=== PATIENT | female | born 1990 | race Caucasian/White ===

== ENCOUNTER 2021-10-23 18:39 | Inpatient (IN) ==
[2021-10-23] MEDS ORDERED: SODIUM CHLORIDE 0.9% 1000ML 1,000 ML IV STA (19:01)
[2021-10-23] MEDS ORDERED: ACETAMINOPHEN 500 MG TAB PO STA (19:01)
[2021-10-23] MEDS ORDERED: SODIUM CHLORIDE 0.9% 1000ML 500 ML IV ONE (19:01)
[2021-10-23 19:24] LABS: Hematocrit (blood only) 40.6 % (37-47); Hemoglobin 13.4 g/dL (12.0-16.0); Lymphocytes # (auto) 0.86 K/uL (1.2-3.4); Lymphocytes % (auto) 23.1 %; Mean Corpuscular Hemoglobin 28.1 pg (25-34); Mean Corpuscular Volume 85.1 fL (80-100); Mean Platelet Volume 9.3 fL (7.4-10.4); Monocytes # (auto) 0.16 K/uL (0.11-0.59); Monocytes % (auto) 4.3 %; Neutrophils # (auto) 2.71 K/uL (1.4-6.5); Neutrophils % (auto) 72.6 %; Platelet Count 180 K/uL (130-400); RDW Coefficient of Variation 15.2 % (11.5-14.5); RDW Standard Deviation 47.5 fL (36.4-46.3); Red Blood Count 4.77 M/uL (4.2-5.4); White Blood Count 3.73 K/uL (4.8-10.8)
--- NOTE | 2021-10-23 19:29 | XRay Report ---
SINGLE VIEW CHEST CLINICAL HISTORY: Dyspnea. FINDINGS: An AP, portable, upright chest radiograph is obtained. No prior studies are available for c omparison at the time of dictation. The examination is degraded by portable technique and patient rot ation. The cardiomediastinal silhouette is unremarkable. There are low lung volumes. Multifocal airs pace consolidation is seen throughout both lungs. No large pleural effusion or pneumothorax is seen. The bony thorax is grossly intact. IMPRESSION: Multifocal airspace consolidation is typical for pneumonia. Clinical correlation will be required and radiographic follow-up to resolution is recommended. ACT 112: Negative or not required by law. Electronically signed by: Benjamin Morales M.D. 10/23/2021 7:27 PM
[2021-10-23] MEDS ORDERED: dexAMETHasone**PF** 10 MG/ML VIAL IV ONE (19:44)
--- NOTE | 2021-10-23 19:44 | Emergency Department Note ---
Impression & Plan COVID-19, Pneumonia, Hypoxia ED Provider Note INFORMANT: Patient ED PROVIDER(S): Abner Ayala MD CHIEF COMPLAINT: Shortness of breath PLAN: Disposition: Admitted Condition: Good Outpatient prescription management: none Referral: None MEDICAL DECISION MAKING: Patient presented because of shortness of breath. She was found to be significantly hypoxic. She responded well to supplemental oxygen. Chest x-ray showed a patchy infiltrative process and with her Covid diagnosis this seems to be most consistent with Covid pneumonia. Patient was hydrated with IV normal saline. She was treated with IV Decadron. She was given Tylenol. CT imaging was performed and did not reveal any central pulmonary embolus. Findings consistent with Covid pneumonia present. Consultation was made with Dr. Raphael Dodson, [facility] hospitalist service. Case discussed and diagnostics reviewed. Patient was evaluated in the ER and admitted. Triage Nursing notes reviewed and agree them. Vital Signs: reviewed and remarkable for hypoxia fever Differential diagnosis: Diagnostics interpreted by me: ECG: Twelve-lead ECG reveals sinus tachycardia [address] elevation or depression. No PACs or PVCs. Normal axis and QRS. Cardiac Monitoring: Cardiac monitoring ordered by me: The patient was placed on continuous cardiac monitoring and observed. It revealed a normal sinus rhythm at 78 beats per minute without ectopy or evidence of dysrhythmia. Imaging studies: Chest x-ray reveals bilateral patchy infiltrates consistent with viral p neumonia. HPI: The patient is a 31 year old female who presents to the Emergency Room with complaints of shortness of breath. This started and is worsening. The patient also notes the following associated symptoms, cough, nausea, vomiting, diarrhea, fatigue and generalized weakness. The patient has found no relieving factors at home Current pain is rated as 0/10. Patient was diagnosed with Covid on 10/16. Upon arrival patient was noted to be hypoxic. She felt much better with supplemental oxygen. Patient is unvaccinated. Pt denies LOC, headache, fevers, chills, diaphoresis, visual changes, neck pain, chest pain, abdominal pain, back pain, melena, hematochezia, urinary symptoms, numbness, lymphadenopathy, rash, or other complaints. ROS: See above HPI for pertinent positives & negatives. A total of 10 systems reviewed and were otherwise negative. PAST MEDICAL HISTORY:See Below , anxiety PAST SURGICAL HISTORY:See Below, FAMILY HISTORY:See Below SOCIAL HISTORY:See Below, non-smoker HOME MEDICATIONS:See Below ALLERGIES:See Below VITALS:See Below PHYSICAL EXAMINATION: GENERAL: Awake, alert, dyspneic-appearing, in mild distress HENT: Normocephalic, atraumatic. Oropharynx unremarkable. EYES: Normal conjunctiva. Sclera non-icteric. NECK: Inspection normal. Non-tender. Supple. No nuchal rigidity. FROM. No masses. RESPIRATORY: Few scattered rales. Mildly increased respiratory effort. CARDIAC: Tachycardic rate. Normal rhythm. No murmurs. No rubs. Extremities warm and well perfused. Pulses equal. No JVD. GI: Soft, non-distended. No tenderness to palpation. No rebound or guarding. No masses. RECTAL: Deferred. MUSCULOSKELETAL: Atraumatic. Chest examination reveals no tenderness. The back is symmetrical on inspection without obvious abnormality. There is no CVA tenderness to palpation. No joint edema. LOWER EXTREMITIES: Calves are equal size bilaterally and non-tender. No edema. No discoloration. NEURO: Normal sensorium. No sensory or motor deficits noted. SKIN: No rash or jaundice noted. CRITICAL CARE: I have personally spent greater than 35 minutes of critical care time in the direct management of this patient. This includes bedside care, interpretation of diagnostic studies, and testing, discussion with datastage consultant(s), patient, and other required patient management activities. These minutes are in excess of all separately billable procedures. Abner Ayala MD Past Med/Surg History Social History Smoking Status: Never smoker Feels Safe at Home: Yes Allergies Allergies Allergy/AdvReac Type Severity Reaction Status Date / Time prednisone Allergy Unknown SHORTNESS Verified 10/23/21 19:53 OF BREATH Home Meds Home Medications Medication Instructions Recorded Confirmed hydroxyzine HCl 50 mg tablet 50 mg PO TID 10/23/21 10/23/21 ondansetron HCl 8 mg tablet 8 mg PO Q8H PRN 10/23/21 10/23/21 Results & Data (ED) Vital Signs Vital Signs - 24 hr 10/23/21 18:46 10/23/21 18:56 10/23/21 19:00 Temperature 37.7 C H Temperature Source Temporal Artery Scan Pulse Rate 120 H 116 H 117 H Pulse Rate [Left Apical] Pulse Rate from SpO2 Sensor 116 H 117 H Respiratory Rate 26 H 20 25 H Respiratory Effort / Characteristics Non-Labored Spontaneous Respiratory Depth Normal Respiratory Pattern Regular Blood Pressure 131/76 116/63 Blood Pressure [Left Arm] Blood Pressure Mean 94 80 Blood Pressure Mean [Left Arm] Pulse Oximetry 82 L 93 94 Oxygen Delivery Method Room Air Oxygen Flow Rate Sepsis Recent Fever Within 48 Hours No Sepsis New/Unexplained Change in Mental Status No Sepsis Action Taken by Nursing No Action Required 10/23/21 19:23 10/23/21 19:26 10/23/21 19:27 Temperature Temperature Source Pulse Rate Pulse Rate [Left Apical] 111 H Pulse Rate from SpO2 Sensor Respiratory Rate 22 Respiratory Effort / Characteristics Short of Breath Respiratory Depth Respiratory Pattern Blood Pressure Blood Pressure [Left Arm] 116/63 Blood Pressure Mean Blood Pressure Mean [Left Arm] 80 Pulse Oximetry 96 96 Oxygen Delivery Method Oxymask Oxymask Oxygen Flow Rate 6 4 Sepsis Recent Fever Within 48 Hours Sepsis New/Unexplained Change in Mental Status Sepsis Action Taken by Nursing 10/23/21 19:30 10/23/21 20:00 10/23/21 20:30 Temperature Temperature Source Pulse Rate 115 H 107 H 102 H Pulse Rate [Left Apical] Pulse Rate from SpO2 Sensor 107 H 102 H Respiratory Rate 17 26 H 22 Respiratory Effort / Characteristics Respiratory Depth Respiratory Pattern Blood Pressure 135/78 Blood Pressure [Left Arm] Blood Pressure Mean 97 Blood Pressure Mean [Left Arm] Pulse Oximetry 96 95 Oxygen Delivery Method Oxygen Flow Rate Sepsis Recent Fever Within 48 Hours Sepsis New/Unexplained Change in Mental Status Sepsis Action Taken by Nursing 10/23/21 21:00 10/23/21 21:30 Temperature Temperature Source Pulse Rate 97 H 93 H Pulse Rate [Left Apical] Pulse Rate from SpO2 Sensor 97 H 94 H Respiratory Rate 25 H 19 Respiratory Effort / Characteristics Respiratory Depth Respiratory Pattern Blood Pressure Blood Pressure [Left Arm] Blood Pressure Mean Blood Pressure Mean [Left Arm] Pulse Oximetry 93 95 Oxygen Delivery Method Nasal Cannula Oxygen Flow Rate 4 Sepsis Recent Fever Within 48 Hours Sepsis New/Unexplained Change in Mental Status Sepsis Action Taken by Nursing Laboratory Data Result diagrams: 10/23/21 19:10 10/23/21 19:10 Lab Results 10/23/21 10/23/21 10/23/21 Range/Units 19:10 19:10 19:10 WBC 3.73 L (4.8-10.8) K/uL RBC 4.77 (4.2-5.4) M/uL Hgb 13.4 (12.0-16.0) g/dL Hct 40.6 (37-47) % MCV 85.1 (80-100) fL MCH 28.1 (25-34) pg MCHC 33.0 (32-36) g/dL RDW Std Deviation 47.5 H (36.4-46.3) fL RDW Coeff of Hermes 15.2 H (11.5-14.5) % Plt Count 180 (130-400) K/uL MPV 9.3 (7.4-10.4) fL Immature Gran % (Auto) 0.0 % Neut % (Auto) 72.6 % Lymph % (Auto) 23.1 % [place] % (Auto) 4.3 % Eos % (Auto) 0.0 % Baso % (Auto) 0.0 % Neut # (Auto) 2.71 (1.4-6.5) K/uL Lymph # (Auto) 0.86 L (1.2-3.4) K/uL [place] # (Auto) 0.16 (0.11-0.59) K/uL Eos # (Auto) 0.00 (0-0.5) K/uL Baso # (Auto) 0.00 (0-0.2) K/uL Immature Gran # (Auto) 0.00 (0.00-0.02) K/uL APTT (21.0-31.0) Seconds PTT Ratio D-Dimer (0-500) ug/L FEU Sodium 136 (136-145) mmol/L Potassium 3.4 L (3.5-5.1) mmol/L Chloride 103 (98-107) mmol/L Carbon Dioxide 25 (21-32) mmol/L Anion Gap 8.0 (3-11) BUN 16 (7-18) mg/dl Creatinine 0.88 (0.6-1.2) mg/dl Est Cr Clr Drug Dosing 130.5 ml/min Est GFR ( Amer) 100.1 ml/min Est GFR (Non-Af Amer) 86.3 ml/min BUN/Creatinine Ratio 18.6 (10-20) Glucose 150 H (70-99) mg/dl Lactate (0.4-2.0) mmol/L Calcium 7.9 L (8.5-10.1) mg/dl Magnesium 2.2 (1.8-2.4) mg/dl Total Bilirubin 0.4 (0.2-1) mg/dl AST 51 H (15-37) U/L ALT 31 (12-78) Alkaline Phosphatase 69 (45-117) U/L Troponin I < 0.015 (0-0.045) ng/ml C-Reactive Protein 6.59 H (0-0.29) mg/dl NT-Pro-B Natriuret Pep 85 (0-450) pg/ml Total Protein 7.1 (6.4-8.2) gm/dl Albumin 2.9 L (3.4-5.0) gm/dl Globulin 4.2 H (2.5-4.0) gm/dl Albumin/Globulin Ratio 0.7 L (0.9-2) Procalcitonin 0.09 (0-0.5) ng/ml HCG, Qual (Negative) SARS-CoV-2 (PCR) (Negative) Influenza Type A (PCR) (Neg) Influenza Type B (PCR) (Neg) RSV (RT-PCR) (Neg) 10/23/21 10/23/21 10/23/21 Range/Units 19:10 19:10 19:10 WBC (4.8-10.8) K/uL RBC (4.2-5.4) M/uL Hgb (12.0-16.0) g/dL Hct (37-47) % MCV (80-100) fL MCH (25-34) pg MCHC (32-36) g/dL RDW Std Deviation (36.4-46.3) fL RDW Coeff of Hermes (11.5-14.5) % Plt Count (130-400) K/uL MPV (7.4-10.4) fL Immature Gran % (Auto) % Neut % (Auto) % Lymph % (Auto) % [place] % (Auto) % Eos % (Auto) % Baso % (Auto) % Neut # (Auto) (1.4-6.5) K/uL Lymph # (Auto) (1.2-3.4) K/uL [place] # (Auto) (0.11-0.59) K/uL Eos # (Auto) (0-0.5) K/uL Baso # (Auto) (0-0.2) K/uL Immature Gran # (Auto) (0.00-0.02) K/uL APTT 31.3 H (21.0-31.0) Seconds PTT Ratio 1.2 D-Dimer 1200 H* (0-500) ug/L FEU Sodium (136-145) mmol/L Potassium (3.5-5.1) mmol/L Chloride (98-107) mmol/L Carbon Dioxide (21-32) mmol/L Anion Gap (3-11) BUN (7-18) mg/dl Creatinine (0.6-1.2) mg/dl Est Cr Clr Drug Dosing ml/min Est GFR ( Amer) ml/min Est GFR (Non-Af Amer) ml/min BUN/Creatinine Ratio (10-20) Glucose (70-99) mg/dl Lactate 1.5 (0.4-2.0) mmol/L Calcium (8.5-10.1) mg/dl Magnesium (1.8-2.4) mg/dl Total Bilirubin (0.2-1) mg/dl AST (15-37) U/L ALT (12-78) Alkaline Phosphatase (45-117) U/L Troponin I (0-0.045) ng/ml C-Reactive Protein (0-0.29) mg/dl NT-Pro-B Natriuret Pep (0-450) pg/ml Total Protein (6.4-8.2) gm/dl Albumin (3.4-5.0) gm/dl Globulin (2.5-4.0) gm/dl Albumin/Globulin Ratio (0.9-2) Procalcitonin (0-0.5) ng/ml HCG, Qual (Negative) SARS-CoV-2 (PCR) (Negative) Influenza Type A (PCR) (Neg) Influenza Type B (PCR) (Neg) RSV (RT-PCR) (Neg) 10/23/21 10/23/21 Range/Units 19:10 19:58 WBC (4.8-10.8) K/uL RBC (4.2-5.4) M/uL Hgb (12.0-16.0) g/dL Hct (37-47) % MCV (80-100) fL MCH (25-34) pg MCHC (32-36) g/dL RDW Std Deviation (36.4-46.3) fL RDW Coeff of Hermes (11.5-14.5) % Plt Count (130-400) K/uL MPV (7.4-10.4) fL Immature Gran % (Auto) % Neut % (Auto) % Lymph % (Auto) % [place] % (Auto) % Eos % (Auto) % Baso % (Auto) % Neut # (Auto) (1.4-6.5) K/uL Lymph # (Auto) (1.2-3.4) K/uL [place] # (Auto) (0.11-0.59) K/uL Eos # (Auto) (0-0.5) K/uL Baso # (Auto) (0-0.2) K/uL Immature Gran # (Auto) (0.00-0.02) K/uL APTT (21.0-31.0) Seconds PTT Ratio D-Dimer (0-500) ug/L FEU Sodium (136-145) mmol/L Potassium (3.5-5.1) mmol/L Chloride (98-107) mmol/L Carbon Dioxide (21-32) mmol/L Anion Gap (3-11) BUN (7-18) mg/dl Creatinine (0.6-1.2) mg/dl Est Cr Clr Drug Dosing ml/min Est GFR ( Amer) ml/min Est GFR (Non-Af Amer) ml/min BUN/Creatinine Ratio (10-20) Glucose (70-99) mg/dl Lactate (0.4-2.0) mmol/L Calcium (8.5-10.1) mg/dl Magnesium (1.8-2.4) mg/dl Total Bilirubin (0.2-1) mg/dl AST (15-37) U/L ALT (12-78) Alkaline Phosphatase (45-117) U/L Troponin I (0-0.045) ng/ml C-Reactive Protein (0-0.29) mg/dl NT-Pro-B Natriuret Pep (0-450) pg/ml Total Protein (6.4-8.2) gm/dl Albumin (3.4-5.0) gm/dl Globulin (2.5-4.0) gm/dl Albumin/Globulin Ratio (0.9-2) Procalcitonin (0-0.5) ng/ml HCG, Qual Negative (Negative) SARS-CoV-2 (PCR) POSITIVE A* (Negative) Influenza Type A (PCR) Negative (Neg) Influenza Type B (PCR) Negative (Neg) RSV (RT-PCR) Negative (Neg) Administered Medications Sodium Chloride (Nss 1000ml) 1,000 mls @ 125 mls/hr IV .Q8H STA Stop: 10/24/21 03:00 Last Admin: 10/23/21 20:00 Dose: 125 mls/hr Documented by: [id number] Potassium Chloride/Sodium Chloride (Normal Saline W/20 Meq Kcl) 20 meq in 1,000 mls @ 80 mls/hr IV .[id number] ONE; Protocol Stop: 10/24/21 10:27 Last Admin: 10/23/21 22:33 Dose: 80 mls/hr Documented by: [id number] Discontinued Medications Acetaminophen (Acetaminophen 500 Mg Tab) 1,000 mg PO NOW STA Stop: 10/23/21 19:02 Last Admin: 10/23/21 19:59 Dose: 1,000 mg Documented by: [id number] Benzonatate (Benzonatate 100 Mg Capsule) 100 mg PO NOW ONE Stop: 10/23/21 21:59 Last Admin: 10/23/21 22:31 Dose: 100 mg Documented by: [id number] Dexamethasone Sodium Phosphate (DexamethasonePf 10 Mg/Ml Vial) 6 mg IV NOW ONE Stop: 10/23/21 19:45 Last Admin: 10/23/21 19:59 Dose: 6 mg Documented by: [id number] Sodium Chloride (Nss 1000ml) 500 mls @ 999 mls/hr IV .Q31M ONE Stop: 10/23/21 19:31 Last Infusion: 10/23/21 22:08 Dose: 0 mls/hr Documented by: [id number] Admin: 10/23/21 19:37 Dose: 999 mls/hr Documented by: [id number] Doxycycline Hyclate 100 mg/ (Dextrose) 110 mls @ 50 mls/hr IV NOW STA Stop: 10/23/21 23:38 Last Admin: 10/23/21 22:39 Dose: Not Given Documented by: [id number] Doxycycline Hyclate 100 mg/ (Dextrose) 110 mls @ 50 mls/hr IV NOW STA Stop: 10/24/21 00:01 Last Admin: 10/23/21 22:33 Dose: 50 mls/hr Documented by: [id number] Ioversol (Optiray 320 125ml) 120 ml IV ONCE ONE Stop: 10/23/21 20:12 Last Admin: 10/23/21 20:14 Dose: 120 ml Documented by: [id number] Ipratropium [place] (Ipratropium [place] Neb Soln 0.02% 2.5 Ml Vial) 0.5 mg INH ONE STA Stop: 10/23/21 21:59 Last Admin: 10/23/21 22:30 Dose: 0.5 mg Documented by: [id number] Levalbuterol HCl (Levalbuterol 1.25mg/0.5ml Neb) 1.25 mg INH ONE STA Stop: 10/23/21 21:59 Last Admin: 10/23/21 22:33 Dose: 1.25 mg Documented by: [id number] Potassium Chloride (Potassium Chloride Crtab 20 Meq Tabcr) 40 meq PO NOW STA Stop: 10/23/21 20:28 Last Admin: 10/23/21 20:39 Dose: 40 meq Documented by: [id number] Imaging Data Radiologist's Impression: Chest X-Ray 10/23/21 18:57 SINGLE VIEW CHEST CLINICAL HISTORY: Dyspnea. FINDINGS: An AP, portable, upright chest radiograph is obtained. No prior studies are available for comparison at the time of dictation. The examination is degraded by portable technique and patient rotation. The cardiomediastinal silhouette is unremarkable. There are low lung volumes. Multifocal airspace consolidation is seen throughout both lungs. No large pleural effusion or pneumothorax is seen. The bony thorax is grossly intact. IMPRESSION: Multifocal airspace consolidation is typical for pneumonia. Clinical correlation will be required and radiographic follow-up to resolution is recommended. ACT 112: Negative or not required by law. Electronically signed by: Benjamin Morales M.D. 10/23/2021 7:27 PM Chest CTA 10/23/21 19:52 CT ANGIOGRAM OF THE CHEST CLINICAL HISTORY: Dyspnea. Covid. COMPARISON STUDY: Chest x-ray dated 10/23/2021. TECHNIQUE: Following the IV administration of 120 cc of Optiray 320, CT angiogram of the chest was performed from the upper abdomen to the thoracic inlet utilizing the pulmonary embolus protocol. Images are reviewed in the axial, sagittal, and coronal planes. 3-D MIPS images are created and assessed. IV contrast was administered without complication. A dose lowering technique was utilized adhering to the principles of ALARA. CT DOSE: 730.56 mGy.cm FINDINGS: Thyroid: Imaged portions of the thyroid gland are normal in size and attenuation. Thoracic aorta: The thoracic aorta is normal in caliber and demonstrates standard 3-vessel arch anatomy. No dissection is seen. Pulmonary vasculature: The pulmonary trunk is normal in caliber. There are no filling defects identified in main, lobar, or proximal segmental pulmonary branches to suggest pulmonary embolus. Evaluation of the segmental and subsegmental branches is significantly degraded by motion artifact. Heart: The heart is top normal in size and without pericardial effusion. Lungs and pleural spaces: Evaluation of the lung parenchyma is degraded by motion artifact. There is extensive multifocal airspace consolidation seen throughout both lungs. No pleural effusion is identified. Secretions are noted in the trachea. There is no pneumothorax. Mediastinum: There are numerous mildly enlarged mediastinal lymph nodes. Prevascular nodes measure up to 12 mm in short axis. Pretracheal nodes measure up to 14 mm in short axis. Rosina: There are enlarged bilateral hilar nodes. These measure up to 13 mm in short axis. Axillae: There is no axillary lymphadenopathy. Upper abdomen: The spleen is enlarged measuring 14.6 cm in length Partially visualized upper abdominal viscera is otherwise grossly unremarkable. Skeletal structures: No lytic or blastic bony lesions are seen. IMPRESSION: 1. Motion compromised examination. 2. There is no evidence of central pulmonary embolus in the main, lobar, or proximal segmental pulmonary arteries. Evaluation of the segmental and subsegmental branches is significantly degraded by motion artifact. 3. Extensive multifocal airspace consolidation is consistent with the reported history of a viral pneumonia. Radiographic follow-up to resolution is recommended. 4. Enlarged mediastinal and hilar lymph nodes are likely reactive. 5. Mild splenomegaly. 6. Additional findings as above. ACT 112: Negative or not required by law. Electronically signed by: Benjamin Morales M.D. 10/23/2021 8:29 PM Discharge Plan Visit Data Chief Complaint: Shortness of Breath/Dyspnea Stated Complaint: COVID+, SOB ED Provider: Abner Ayala Discharge Problem: COVID-19, Pneumonia, Hypoxia Patient Disposition: Admitted As Inpatient Discharge Instructions Interventions: ED Discharge Assessment Last Done: 10/24/21 01:57
[2021-10-23 19:45] LABS: Alanine Aminotransferase 31 (12-78); Albumin Level 2.9 gm/dl (3.4-5.0); Aspartate Aminotransferase 51 U/L (15-37); BUN Creatinine Ratio 18.6 (10-20); Blood Urea Nitrogen 16 mg/dl (7-18); C Reactive Protein 6.59 mg/dl (0-0.29); Calcium 7.9 mg/dl (8.5-10.1); Carbon Dioxide 25 mmol/L (21-32); Chloride 103 mmol/L (98-107); Creatinine Clr Calc Pharmacy 130.5 ml/min; Est GFR (African American) 100.1 ml/min; Est GFR (Non-African American) 86.3 ml/min; Glucose 150 mg/dl (70-99); Potassium 3.4 mmol/L (3.5-5.1); Sodium 136 mmol/L (136-145)
[2021-10-23 19:50] LABS: Albumin Globulin Ratio 0.7 (0.9-2); Alkaline Phosphatase 69 U/L (45-117); Bilirubin,Total 0.4 mg/dl (0.2-1); Globulin 4.2 gm/dl (2.5-4.0); NT Pro B Type Natriuretic Pept 85 pg/ml (0-450); Total Protein 7.1 gm/dl (6.4-8.2); Troponin I < 0.015 ng/ml (0-0.045)
[2021-10-23] MEDS ORDERED: OPTIRAY 320 125ml IV ONE (20:11)
[2021-10-23] MEDS ORDERED: POTASSIUM CHLORIDE CRTAB 20 MEQ TABCR PO STA (20:27)
--- NOTE | 2021-10-23 20:30 | CT Scan Report ---
CT ANGIOGRAM OF THE CHEST CLINICAL HISTORY: Dyspnea. Covid. COMPARISON STUDY: Chest x-ray dated 10/23/2021. TECHNIQUE: Following the IV administration of 120 cc of Optiray 320, CT angiogram of the chest was pe rformed from the upper abdomen to the thoracic inlet utilizing the pulmonary embolus protocol. Images are reviewed in the axial, sagittal, and coronal planes. 3-D MIPS images are created and assessed. I V contrast was administered without complication. A dose lowering technique was utilized adhering to the principles of ALARA. CT DOSE: 730.56 mGy.cm FINDINGS: Thyroid: Imaged portions of the thyroid gland are normal in size and attenuation. Thoracic aorta: The thoracic aorta is normal in caliber and demonstrates standard 3-vessel arch anato my. No dissection is seen. Pulmonary vasculature: The pulmonary trunk is normal in caliber. There are no filling defects identif ied in main, lobar, or proximal segmental pulmonary branches to suggest pulmonary embolus. Evaluation of the segmental and subsegmental branches is significantly degraded by motion artifact. Heart: The heart is top normal in size and without pericardial effusion. Lungs and pleural spaces: Evaluation of the lung parenchyma is degraded by motion artifact. There is extensive multifocal airspace consolidation seen throughout both lungs. No pleural effusion is identi fied. Secretions are noted in the trachea. There is no pneumothorax. Mediastinum: There are numerous mildly enlarged mediastinal lymph nodes. Prevascular nodes measure up to 12 mm in short axis. Pretracheal nodes measure up to 14 mm in short axis. Ros[place]: There are enlarged bilateral hilar nodes. These measure up to 13 mm in short axis. Axillae: There is no axillary lymphadenopathy. Upper abdomen: The spleen is enlarged measuring 14.6 cm in length Partially visualized upper abdomina l viscera is otherwise grossly unremarkable. Skeletal structures: No lytic or blastic bony lesions are seen. IMPRESSION: 1. Motion compromised examination. 2. There is no evidence of central pulmonary embolus in the main, lobar, or proximal segmental pulmon jaydon arteries. Evaluation of the segmental and subsegmental branches is significantly degraded by claudia on artifact. 3. Extensive multifocal airspace consolidation is consistent with the reported history of a viral pne umonia. Radiographic follow-up to resolution is recommended. 4. Enlarged mediastinal and hilar lymph nodes are likely reactive. 5. Mild splenomegaly. 6. Additional findings as above. ACT 112: Negative or not required by law. Electronically signed by: Benjamin Morales M.D. 10/23/2021 8:29 PM
[2021-10-23 20:36] LABS: Magnesium 2.2 mg/dl (1.8-2.4)
[2021-10-23 20:42] LABS: Partial Thromboplastin Ratio 1.2; Partial Thromboplastin Time 31.3 Seconds (21.0-31.0)
[2021-10-23 20:49] LABS: Influenza A virus by PCR Negative (Neg); Influenza B virus by PCR Negative (Neg); RSV by PCR Negative (Neg)
[2021-10-23 21:18] LABS: D Dimer 1200 ug/L FEU (0-500)
[2021-10-23 21:23] LABS: SARS CoV2 RNA(COVID-19) InHosp POSITIVE (Negative)
[2021-10-23] MEDS ORDERED: DOXYCYCLINE HYCLATE 100 MG in DEXTROSE 5% 100 ML IV STA ×2 (21:27→21:50)
[2021-10-23 21:47] LABS: Pregnancy Test, Serum Negative (Negative)
[2021-10-23] MEDS ORDERED: XOPENEX/ATROVENT 1.25mg/0.5MG NEB COMBO NEB STA (21:50)
--- NOTE | 2021-10-23 21:50 | History & Physical Report ---
Date of Service October 23, 2021 Assessment & Plan (1) Acute hypoxemic respiratory failure: Plan: Secondary to severe COVID-19 pneumonia Patient septic with secondary bacterial infection. Hemoptysis secondary to above Hemoglobin currently stable anxiety disorder, at baseline Hypokalemia secondary to diarrhea, poor p.o. intake prediabetes, hemoglobin A1c of 5.12 May 2021 Medical telemetry Supplemental O2 Decadron course CS, Doxycycline for secondary bacterial infection Antitussives for hemoptysis. Pulmonary consult if with worsening Replace potassium DVT prophylaxis SCDs for now Re: Hemoptysis, initiate Lovenox subcu once hemoptysis resolved and hemoglobin stable/ Full code Text document was generated using [email or web address] voice recognition software. It may contain grammatical or spelling errors. Kindly contact undersigned for clarification of any documentation item in question. History of Present Illness Chief Complaint: Low oxygen, shortness of breath, Covid 19 Primary Care Provider: Dr. Felice Aaron History obtained from patient and records. Medical history significant for kidney stones, anxiety disorder, prediabetes. 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 10 days ago patient noted fever, vomiting, diarrhea symptoms without abdominal pain. Sick COVID-19 contacts at work. Home Covid test was positive. Patient has not received COVID-19 vaccination. Supportive care recommended by PCPs office. 3 days ago, patient noted burning chest discomfort with cough productive of yellow sputum followed by hemoptysis, shortness of breath, body aches, headache and neck pain. PCPs office recommended ER consult if O2 sats below 80 at home as per patient. O2 sats noted to be 70s on home pulse ox. Decadron administered at the ER. Medical History as above Surgical History : D&C Family History : Hyperlipidemia, hypertension Personal/Social history : Non-smoker, no EtOH intake, factory work Allergies Allergy/AdvReac Type Severity Reaction Status Date / Time prednisone AdvReac Mild heart Verified 10/24/21 06:11 racing as per px Home Medications Medication Instructions Recorded Confirmed Type hydroxyzine HCl 50 mg tablet 50 mg PO TID 10/23/21 10/23/21 History ondansetron HCl 8 mg tablet 8 mg PO Q8H PRN 10/23/21 10/23/21 History Past Med/Surg History Social History Smoking Status: Never smoker Hx Alcohol Use: No Hx Substance Use: No Preferred Language: Malagasy Communication Ability: Effective Rn Ent Required: No Beliefs That Will Affect Care: None Current Living Situation: Spouse Other Information That Helps Us Care for You: No Feels Safe at Home: Yes Safety Concerns: Feels Safe At This Time Assistive Devices: None Review of Systems Review of Systems: As per HPI, all 10 systems reviewed, all other ROS negative Physical Exam Physical Exam: GENERAL: Slightly anxious and uncomfortable, morbidly obese, minimal respiratory distress SKIN: Normal color, warm HEENT: Edmonds palpebral conjunctivae, no ptosis, dry buccal mucosa, nasal cannula in place NECK : Supple, short neck, no tenderness CHEST : Decreased breath sounds, no tenderness HEART : RRR, no obvious murmurs ABDOMEN: Some distention, nontender EXTREMITIES : Minimal LE swelling, no LE tenderness, no other conspicuous deformities noted NEUROLOGIC : Coherent, no facial asymmetry, no other gross focality Results & Data Results & [facility] ([facility]) Vital Signs (Past 12 Hours) Vital Signs Temp Pulse Pulse Resp BP BP Pulse Ox 10/23/21 21:00 97 H 25 H 93 10/23/21 20:30 102 H 22 95 10/23/21 20:00 107 H 26 H 135/78 96 10/23/21 19:30 115 H 17 10/23/21 19:27 111 H 22 116/63 96 10/23/21 19:26 96 10/23/21 19:00 117 H 25 H 116/63 94 10/23/21 18:56 116 H 20 93 10/23/21 18:46 37.7 C H 120 H 26 H 131/76 82 L Laboratory Results Laboratory Results WBC 3.73 K/uL (4.8-10.8) L 10/23/21 19:10 RBC 4.77 M/uL (4.2-5.4) 10/23/21 19:10 Hgb 13.4 g/dL (12.0-16.0) 10/23/21 19:10 Hct 40.6 % (37-47) 10/23/21 19:10 MCV 85.1 fL (80-100) 10/23/21 19:10 MCH 28.1 pg (25-34) 10/23/21 19:10 MCHC 33.0 g/dL (32-36) 10/23/21 19:10 RDW Std Deviation 47.5 fL (36.4-46.3) H 10/23/21 19:10 RDW Coeff of Hermes 15.2 % (11.5-14.5) H 10/23/21 19:10 Plt Count 180 K/uL (130-400) 10/23/21 19:10 MPV 9.3 fL (7.4-10.4) 10/23/21 19:10 Immature Gran % (Auto) 0.0 % 10/23/21 19:10 Neut % (Auto) 72.6 % 10/23/21 19:10 Lymph % (Auto) 23.1 % 10/23/21 19:10 Sullivan % (Auto) 4.3 % 10/23/21 19:10 Eos % (Auto) 0.0 % 10/23/21 19:10 Baso % (Auto) 0.0 % 10/23/21 19:10 Neut # (Auto) 2.71 K/uL (1.4-6.5) 10/23/21 19:10 Lymph # (Auto) 0.86 K/uL (1.2-3.4) L 10/23/21 19:10 Sullivan # (Auto) 0.16 K/uL (0.11-0.59) 10/23/21 19:10 Eos # (Auto) 0.00 K/uL (0-0.5) 10/23/21 19:10 Baso # (Auto) 0.00 K/uL (0-0.2) 10/23/21 19:10 Immature Gran # (Auto) 0.00 K/uL (0.00-0.02) 10/23/21 19:10 APTT 31.3 Seconds (21.0-31.0) H 10/23/21 19:10 PTT Ratio 1.2 10/23/21 19:10 D-Dimer 1200 ug/L FEU (0-500) H* 10/23/21 19:10 Sodium 136 mmol/L (136-145) 10/23/21 19:10 Potassium 3.4 mmol/L (3.5-5.1) L 10/23/21 19:10 Chloride 103 mmol/L (98-107) 10/23/21 19:10 Carbon Dioxide 25 mmol/L (21-32) 10/23/21 19:10 Anion Gap 8.0 (3-11) 10/23/21 19:10 BUN 16 mg/dl (7-18) 10/23/21 19:10 Creatinine 0.88 mg/dl (0.6-1.2) 10/23/21 19:10 Est Cr Clr Drug Dosing 130.5 ml/min 10/23/21 19:10 Est GFR ( Amer) 100.1 ml/min 10/23/21 19:10 Est GFR (Non-Af Amer) 86.3 ml/min 10/23/21 19:10 BUN/Creatinine Ratio 18.6 (10-20) 10/23/21 19:10 Glucose 150 mg/dl (70-99) H 10/23/21 19:10 Lactate 1.5 mmol/L (0.4-2.0) 10/23/21 19:10 Calcium 7.9 mg/dl (8.5-10.1) L 10/23/21 19:10 Magnesium 2.2 mg/dl (1.8-2.4) 10/23/21 19:10 Total Bilirubin 0.4 mg/dl (0.2-1) 10/23/21 19:10 AST 51 U/L (15-37) H 10/23/21 19:10 ALT 31 (12-78) 10/23/21 19:10 Alkaline Phosphatase 69 U/L (45-117) 10/23/21 19:10 Troponin I < 0.015 ng/ml (0-0.045) 10/23/21 19:10 C-Reactive Protein 6.59 mg/dl (0-0.29) H 10/23/21 19:10 NT-Pro-B Natriuret Pep 85 pg/ml (0-450) 10/23/21 19:10 Total Protein 7.1 gm/dl (6.4-8.2) 10/23/21 19:10 Albumin 2.9 gm/dl (3.4-5.0) L 10/23/21 19:10 Globulin 4.2 gm/dl (2.5-4.0) H 10/23/21 19:10 Albumin/Globulin Ratio 0.7 (0.9-2) L 10/23/21 19:10 Procalcitonin 0.09 ng/ml (0-0.5) 10/23/21 19:10 HCG, Qual Negative (Negative) 10/23/21 19:10 SARS-CoV-2 (PCR) POSITIVE (Negative) A* 10/23/21 19:58 Influenza Type A (PCR) Negative (Neg) 10/23/21 19:58 Influenza Type B (PCR) Negative (Neg) 10/23/21 19:58 RSV (RT-PCR) Negative (Neg) 10/23/21 19:58 Impressions Chest X-Ray 10/23/21 18:57 SINGLE VIEW CHEST CLINICAL HISTORY: Dyspnea. FINDINGS: An AP, portable, upright chest radiograph is obtained. No prior studies are available for comparison at the time of dictation. The examination is degraded by portable technique and patient rotation. The cardiomediastinal silhouette is unremarkable. There are low lung volumes. Multifocal airspace consolidation is seen throughout both lungs. No large pleural effusion or pneumothorax is seen. The bony thorax is grossly intact. IMPRESSION: Multifocal airspace consolidation is typical for pneumonia. Clinical correlation will be required and radiographic follow-up to resolution is recommended. ACT 112: Negative or not required by law. Electronically signed by: Benjamin Morales M.D. 10/23/2021 7:27 PM Chest CTA 10/23/21 19:52 CT ANGIOGRAM OF THE CHEST CLINICAL HISTORY: Dyspnea. Covid. COMPARISON STUDY: Chest x-ray dated 10/23/2021. TECHNIQUE: Following the IV administration of 120 cc of Optiray 320, CT angiogram of the chest was performed from the upper abdomen to the thoracic in let utilizing the pulmonary embolus protocol. Images are reviewed in the axial, sagittal, and coronal planes. 3-D MIPS images are created and assessed. IV contrast was administered without complication. A dose lowering technique was utilized adhering to the principles of ALARA. CT DOSE: 730.56 mGy.cm FINDINGS: Thyroid: Imaged portions of the thyroid gland are normal in size and attenuation. Thoracic aorta: The thoracic aorta is normal in caliber and demonstrates standard 3-vessel arch anatomy. No dissection is seen. Pulmonary vasculature: The pulmonary trunk is normal in caliber. There are no filling defects identified in main, lobar, or proximal segmental pulmonary branches to suggest pulmonary embolus. Evaluation of the segmental and subsegmental branches is significantly degraded by motion artifact. Heart: The heart is top normal in size and without pericardial effusion. Lungs and pleural spaces: Evaluation of the lung parenchyma is degraded by motion artifact. There is extensive multifocal airspace consolidation seen throughout both lungs. No pleural effusion is identified. Secretions are noted in the trachea. There is no pneumothorax. Mediastinum: There are numerous mildly enlarged mediastinal lymph nodes. Prevascular nodes measure up to 12 mm in short axis. Pretracheal nodes measure up to 14 mm in short axis. Rosina: There are enlarged bilateral hilar nodes. These measure up to 13 mm in short axis. Axillae: There is no axillary lymphadenopathy. Upper abdomen: The spleen is enlarged measuring 14.6 cm in length Partially visualized upper abdominal viscera is otherwise grossly unremarkable. Skeletal structures: No lytic or blastic bony lesions are seen. IMPRESSION: 1. Motion compromised examination. 2. There is no evidence of central pulmonary embolus in the main, lobar, or proximal segmental pulmonary arteries. Evaluation of the segmental and subsegmental branches is significantly degraded by motion artifact. 3. Extensive multifocal airspace consolidation is consistent with the reported history of a viral pneumonia. Radiographic follow-up to resolution is recommended. 4. Enlarged mediastinal and hilar lymph nodes are likely reactive. 5. Mild splenomegaly. 6. Additional findings as above. ACT 112: Negative or not required by law. Electronically signed by: Benjamin Morales M.D. 10/23/2021 8:29 PM Diagnostic Findings EKG as per interpretation: Rate 110, sinus tachycardia, normal axis, T wave abnormalities inferior and anterolateral leads
[2021-10-23] MEDS ORDERED: LEVALBUTEROL 1.25MG/0.5ML NEB INH STA (21:58)
[2021-10-23] MEDS ORDERED: BENZONATATE 100 MG CAPSULE PO ONE (21:58)
[2021-10-23] MEDS ORDERED: IPRATROPIUM BROMIDE NEB SOLN 0.02% 2.5 ML VIAL INH STA (21:58)
[2021-10-23] MEDS ORDERED: NSS + 20MEQ KCL 20 MEQ/1,000 ML BAG IV ONE (21:58)
[2021-10-24] MEDS ORDERED: BENZONATATE 100 MG CAPSULE PO PRN (01:51)
[2021-10-24] MEDS ORDERED: ACETAMINOPHEN 325 MG TAB PO PRN (01:51)
[2021-10-24] MEDS ORDERED: PROMETHAZINE HCL 12.5 MG in SODIUM CHLORIDE 0.9% 50 ML IV PRN (01:51)
--- NOTE | 2021-10-24 06:58 | Electrocardiogram Report ---
Test Reason : Blood Pressure : / mmHG Vent. Rate : 108 BPM Atrial Rate : 108 BPM P-R Int : 136 ms QRS Dur : 078 ms QT Int : 350 ms P-R-T Axes : 042 015 007 degrees QTc Int : 469 ms Sinus tachycardia Nonspecific T wave abnormality No previous ECGs available Confirmed by Jacques Brown ([id number]) on 10/24/2021 6:58:01 AM Referred By: REFERRED SELF Confirmed By:Jacques Brown
[2021-10-24 07:15] LABS: Albumin Level 2.6 gm/dl (3.4-5.0); Bilirubin,Total 0.6 mg/dl (0.2-1); C Reactive Protein 5.64 mg/dl (0-0.29)
[2021-10-24 08:23] LABS: Bilirubin Direct 0.1 mg/dl (0-0.2)
[2021-10-24] MEDS ORDERED: DOXYCYCLINE HYCLATE 100 MG CAP PO SCH (09:00)
[2021-10-24] MEDS: dexAMETHasone 6 MG in SYRINGE 0 ML IV SCH (09:20)
[2021-10-24] MEDS ORDERED: REMDESIVIR 200 MG in SODIUM CHLORIDE 0.9% 210 ML IV ONE (09:30)
[2021-10-24] MEDS ORDERED: SODIUM CHLORIDE 0.9% 10ML FLUSH IV SCH (12:00)
--- NOTE | 2021-10-24 12:19 | Hospitalist Progress Note ---
Date of Service October 24, 2021 Assessment & Plan (1) Pneumonia due to COVID-19 virus: Plan: Slightly late presentation for remdesivir, offered but she declines. Cont with decadron and discussed symptoms/side effects of steroids with her. She verbalized understanding. Encouraged to prone. Denies cough or congestion. Supportive care for diarrhea (i.e: avoid dairy products, drink powerade and drinks with electrolytes). Of note, procalcitonin is negative and I don't see the need for doxycycline at this time which was stopped. Will trend CRP and procalcitonin periodically if clinical picture worsens. (2) Hypoxia: Plan: support with oxygen, currently requiring 4 LPM at rest. Would not ambulate her much and please utilize bedside commode to avoid unnecessary desaturations in oxygen levels. (3) Morbid obesity: Plan: places her at higher risk for complications of covid-19. (4) DVT prophylaxis: Plan: Lovenox BID started as this is a highly thrombogenic condition and she is predominantly bedbound at this time. Full code Dispo-to home when medically stable Nallely Shelton DO [facility] Hospitalist Admission and Anticipated Discharge Date Admission Date: October 23, 2021 Subjective 31 yo unvaccinated obese female presents with hypoxia 2/2 9 days of covid symptoms. -reports 2 episodes of diarrhea -SOB slightly better today, encouraged to prone -tolerating PO, encouraged to hydrate especially with liquids that have electrolytes in them eager to be home for Xmas on 10/30 Review of Systems Review of Systems: All systems were reviewed and negative except as indicated above. Physical Exam Physical Exam: CONSTITUTIONAL: morbid obesity, vitals as above, generally well-appearing, NAD EYES: normal conjunctivae, no scleral icterus ENT: external ear and nose normal, MMM NECK: trachea midline RESPIRATORY: coarse rhonchi throughout, no rales or wheezes, normal respiratory effort CARDIOVASCULAR: regular rate and rhythm, S1 and 2 heard without murmurs, gallops or rubs, no JVD, no peripheral edema CHEST: inspection of chest was normal GASTROINTESTINAL: soft, nontender, ND, no guarding MUSCULOSKELETAL: strength 5/5 throughout, head is normocephalic and atraumatic SKIN: warm and dry, NEUROLOGIC: CN 2-12 grossly intact, no sensory deficit, normal cognition, normal speech, no tremor, no gross focal deficits. PSYCHIATRIC: alert cooperative and oriented to person, place and time. Euthymic mood, makes good eye contact, language grossly intact, recent and remote memory grossly intact. Results & Data Results & Data ([facility]) Vital Signs (Past 12 Hours) Vital Signs Temp Pulse Pulse Pulse Resp BP BP 10/24/21 11:47 36.4 C L 86 20 115/75 10/24/21 11:26 76 10/24/21 07:38 36.6 C 79 20 109/72 10/24/21 03:29 36.4 C L 78 20 136/84 10/24/21 01:30 78 17 120/78 10/24/21 01:00 81 17 10/24/21 00:30 85 18 Pulse Ox 10/24/21 11:47 91 10/24/21 11:26 10/24/21 07:38 92 10/24/21 03:29 93 10/24/21 01:30 93 10/24/21 01:00 94 10/24/21 00:30 93 Laboratory Results Short CBC 10/23/21 Range/Units 19:10 WBC 3.73 L (4.8-10.8) K/uL Hgb 13.4 (12.0-16.0) g/dL Hct 40.6 (37-47) % Plt Count 180 (130-400) K/uL BMP 10/23/21 19:10 Sodium 136 Potassium 3.4 L Chloride 103 Carbon Dioxide 25 BUN 16 Creatinine 0.88 Glucose 150 H Calcium 7.9 L Cardiac Enzymes 10/23/21 Range/Units 19:10 Troponin I < 0.015 (0-0.045) ng/ml Liver Function 10/23/21 10/24/21 10/24/21 Range/Units 19:10 05:39 07:34 Total Bilirubin 0.4 0.6 (0.2-1) mg/dl Direct Bilirubin 0.1 (0-0.2) mg/dl AST 51 H 37 (15-37) U/L ALT 31 31 (12-78) Alkaline Phosphatase 69 62 (45-117) U/L Albumin 2.9 L 2.6 L (3.4-5.0) gm/dl Medications Administered Current Inpatient Medications Acetaminophen (Acetaminophen 325 Mg Tab) 650 mg PO Q4H PRN PRN Reason: Pain or Fever Stop: 11/23/21 01:50 Benzonatate (Benzonatate 100 Mg Capsule) 100 mg PO TID PRN PRN Reason: Cough Stop: 11/23/21 01:50 Hydroxyzine HCl (Hydroxyzine Hcl 25 Mg Tab) 50 mg PO TID PRN PRN Reason: Anxiety Stop: 11/23/21 01:50 Dexamethasone 6 mg/ Syringe 1.5 mls @ 1 mls/min IV DAILY CHAVA Stop: 11/23/21 08:59 Last Admin: 10/24/21 09:20 Dose: 1 mls/min Documented by: Promethazine HCl 12.5 mg/ (Sodium Chloride) 50.5 mls @ 202 mls/hr IV Q6H PRN PRN Reason: Nausea And Vomiting Stop: 11/23/21 01:50
[2021-10-24 12:43] LABS: Appearance Urine Clear (Clear); Bacteria Urine Automated 1+ (Negative); Bilirubin Urine Negative (Negative); Blood Urine 1+ (Negative); Color Urine Dark Yellow; Epithelial Cell Urine Auto >30 /lpf (0-5); Glucose Urine UA Negative (Negative); Ketones Urine Negative (Negative); Leukocyte Esterase Urine Negative (Negative); Nitrite Urine Negative (Negative); Protein Urine 2+ (Negative); Specific Gravity Urine 1.033 (1.000-1.030); Urobilinogen Urine Negative (Negative)
[2021-10-24 12:54] LABS: RBC Urine Automated 0-4 /hpf (0-4)
[2021-10-24] MEDS: ENOXAPARIN INJ 40 MG/0.4 ML SYR SQ SCH ×2 (13:38→20:32)
[2021-10-24] MEDS: DAPTOmycin 550 MG in SYRINGE 0 ML IV SCH (19:43)
[2021-10-24] MEDS: hydrOXYzine HCl 25 MG TAB PO PRN (23:57)
[2021-10-25 07:16] LABS: Estimated Average Glucose 128 mg/dl; Hemoglobin A1C 6.1 % (4.5-5.6)
[2021-10-25] MEDS: ENOXAPARIN INJ 40 MG/0.4 ML SYR SQ SCH ×2 (07:51→22:17)
[2021-10-25] MEDS: dexAMETHasone 6 MG in SYRINGE 0 ML IV SCH (07:51)
[2021-10-25] MEDS ORDERED: CALCIUM CARBONATE 500 MG CHEWABLE TAB PO PRN (08:44)
[2021-10-25] MEDS ORDERED: CALCIUM CARBONATE 500 MG CHEWABLE TAB ONE (08:49)
[2021-10-25 10:23] LABS: BUN Creatinine Ratio 18.1 (10-20); C Reactive Protein 3.14 mg/dl (0-0.29); Calcium 8.2 mg/dl (8.5-10.1); Creatinine Clr Calc Pharmacy 173.9 ml/min; Est GFR (African American) 134.5 ml/min; Est GFR (Non-African American) 116.1 ml/min
[2021-10-25] MEDS ORDERED: REMDESIVIR 100 MG in SODIUM CHLORIDE 0.9% 230 ML IV SCH (12:00)
--- NOTE | 2021-10-25 13:31 | Hospitalist Progress Note ---
Date of Service October 25, 2021 Assessment & Plan (1) Pneumonia due to COVID-19 virus: Plan: Slightly late presentation for remdesivir, offered but she declines. Cont with decadron. Encouraged to prone. (2) Hypoxia: Plan: Support with oxygen, currently requiring 10 LPM at rest. (3) Morbid obesity: Plan: Placed her at higher risk for complications of covid-19. (4) DVT prophylaxis: Plan: Lovenox BID started as this is a highly thrombogenic condition and she is predominantly bedbound at this time. Full code Dispo-to home when medically stable ROS-No Headache, No Visual Changes, No Nausea, No Vomiting, No Fever, No Chills, No Neck Pain or Stiffness, No Chest Pain, No Palpitations, positive SOB, positive SALGADO, positive cough, No Sputum, No Wheezing, No Abdominal Pain, No Diarrhea, No Hematemesis, No Hemoptysis, No Unexpected Weight Loss, No Flank pain, No Melena, No Hematochezia, No Frequency, No Urgency, No Burning, No Hematuria, No Rashes, No Diaphoresis. Appetite is Normal Physical Exam Gen-AAO x 3, NAD, Afebrile, on 10 L O2 nasal cannula currently, obese Head-NCAT, EOMI, PERRLA, Anicteric Sclera, No Posterior Pharyngeal Erythema Neck-Supple, No JVD, No Thyromegaly, No Masses, No LAD, No Bruits Lungs-Clear to Auscultation Bilaterally, No Rales, No Rhonchi, No Wheezing, No Crepitus Chest-No S4, +S1, +S2, No S3, No Murmurs, No Rubs, No Gallops, No Ectopy Abdomen-Soft, Bowel Sounds Present, obese, non-tender, Non Distended, No Hepatomegaly, No Splenomegaly, No Palpable Masses, No Rebound, No Rigidity, No Guarding Musculoskeletal-Full Range of Motion Bilaterally, No CVAT Extremities-No Cyanosis, No Clubbing, No Edema Nuero-Cranial Nerves II-XII grossly intact, Motor WNL, DTRs WNL, Strength WNL, Non Focal Psych-Normal Mood Admission and Anticipated Discharge Date Admission Date: October 23, 2021 Subjective 31 yo unvaccinated obese female presents with hypoxia secondary to 9 days of covid symptoms. 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 -eager to be home for Xmas on 10/30 and I told her it will be close Results & Data Results & Data ([facility]) Vital Signs (Past 12 Hours) Vital Signs Temp Pulse Resp BP BP Pulse Ox 10/25/21 11:58 36.7 C 87 19 116/76 97 10/25/21 07:21 37.5 C 89 20 138/81 96 10/25/21 05:14 36.9 C 107 H 19 123/81 92 Laboratory Results Blood cultures turned positive today. We will repeat
[2021-10-25] MEDS: DAPTOmycin 550 MG in SYRINGE 0 ML IV SCH (17:38)
[2021-10-25] MEDS: hydrOXYzine HCl 25 MG TAB PO PRN (22:16)
[2021-10-26 07:10] LABS: Basophils # (auto) 0.01 K/uL (0-0.2); Basophils % (auto) 0.2 %; Hematocrit (blood only) 38.6 % (37-47); Hemoglobin 12.6 g/dL (12.0-16.0); Immature Granulocytes # (auto) 0.01 K/uL (0.00-0.02); Immature Granulocytes % (auto) 0.2 %; Lymphocytes # (auto) 1.54 K/uL (1.2-3.4); Mean Corpuscular Hemoglobin 27.8 pg (25-34); Mean Corpuscular Hgb Conc 32.6 g/dL (32-36); Mean Corpuscular Volume 85.2 fL (80-100); Mean Platelet Volume 9.4 fL (7.4-10.4); Monocytes # (auto) 0.44 K/uL (0.11-0.59); Monocytes % (auto) 8.9 %; Neutrophils # (auto) 2.96 K/uL (1.4-6.5); Neutrophils % (auto) 59.7 %; Platelet Count 235 K/uL (130-400); RDW Coefficient of Variation 15.7 % (11.5-14.5); RDW Standard Deviation 48.9 fL (36.4-46.3); Red Blood Count 4.53 M/uL (4.2-5.4); White Blood Count 4.96 K/uL (4.8-10.8)
[2021-10-26] MEDS: ENOXAPARIN INJ 40 MG/0.4 ML SYR SQ SCH ×2 (07:35→21:48)
[2021-10-26] MEDS: dexAMETHasone 6 MG in SYRINGE 0 ML IV SCH (07:35)
[2021-10-26 07:45] LABS: Albumin Level 2.4 gm/dl (3.4-5.0); BUN Creatinine Ratio 25.5 (10-20); Calcium 8.8 mg/dl (8.5-10.1); Creatinine Clr Calc Pharmacy 202.7 ml/min; Est GFR (African American) 141.2 ml/min; Est GFR (Non-African American) 121.8 ml/min
[2021-10-26 07:48] LABS: Albumin Globulin Ratio 0.5 (0.9-2); Bilirubin,Total 0.5 mg/dl (0.2-1); Globulin 4.4 gm/dl (2.5-4.0); Total Protein 6.8 gm/dl (6.4-8.2)
--- NOTE | 2021-10-26 13:59 | Hospitalist Progress Note ---
Date of Service October 26, 2021 Assessment & Plan (1) Pneumonia due to COVID-19 virus: Plan: Slightly late presentation for remdesivir, offered but she declines. Cont with decadron. Encouraged to prone. Feeling better (2) Hypoxia: Plan: Support with oxygen, currently requiring 6 LPM at rest. Was on 10 L yesterday (3) Morbid obesity: Plan: Placed her at higher risk for complications of covid-19. (4) DVT prophylaxis: Plan: Lovenox BID started as this is a highly thrombogenic condition and she is predominantly bedbound at this time. Full code Dispo-to home when medically stable ROS-No Headache, No Visual Changes, No Nausea, No Vomiting, No Fever, No Chills, No Neck Pain or Stiffness, No Chest Pain, No Palpitations, positive SOB, positive SALGADO, positive cough, No Sputum, No Wheezing, No Abdominal Pain, No Diarrhea, No Hematemesis, No Hemoptysis, No Unexpected Weight Loss, No Flank pain, No Melena, No Hematochezia, No Frequency, No Urgency, No Burning, No Hematuria, No Rashes, No Diaphoresis. Appetite is Normal Physical Exam Gen-AAO x 3, NAD, Afebrile, on 10 L O2 nasal cannula currently, obese Head-NCAT, EOMI, PERRLA, Anicteric Sclera, No Posterior Pharyngeal Erythema Neck-Supple, No JVD, No Thyromegaly, No Masses, No LAD, No Bruits Lungs-Clear to Auscultation Bilaterally, No Rales, No Rhonchi, No Wheezing, No Crepitus Chest-No S4, +S1, +S2, No S3, No Murmurs, No Rubs, No Gallops, No Ectopy Abdomen-Soft, Bowel Sounds Present, obese, non-tender, Non Distended, No Hepatomegaly, No Splenomegaly, No Palpable Masses, No Rebound, No Rigidity, No Guarding Musculoskeletal-Full Range of Motion Bilaterally, No CVAT Extremities-No Cyanosis, No Clubbing, No Edema Nuero-Cranial Nerves II-XII grossly intact, Motor WNL, DTRs WNL, Strength WNL, Non Focal Psych-Normal Mood Admission and Anticipated Discharge Date Admission Date: October 23, 2021 Subjective 31 yo unvaccinated obese female presents with hypoxia secondary to 9 days of covid symptoms. 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 -eager to be home for Xmas on 10/30 and I told her it will be close Results & Data Results & Data ([facility]) Vital Signs (Past 12 Hours) Vital Signs Temp Pulse Resp BP Pulse Ox 10/26/21 11:54 36.4 C L 63 19 113/77 91 10/26/21 08:01 36.6 C 70 19 112/75 94 10/26/21 04:28 36.6 C 70 20 114/76 88 L Laboratory Results reviewed
[2021-10-26] MEDS: DAPTOmycin 550 MG in SYRINGE 0 ML IV SCH (16:45)
[2021-10-26] MEDS: hydrOXYzine HCl 25 MG TAB PO PRN (21:47)
[2021-10-27 06:57] LABS: Hematocrit (blood only) 36.6 % (37-47); Hemoglobin 11.8 g/dL (12.0-16.0); Mean Corpuscular Hemoglobin 27.4 pg (25-34); Mean Corpuscular Hgb Conc 32.2 g/dL (32-36); Mean Corpuscular Volume 84.9 fL (80-100); Mean Platelet Volume 9.6 fL (7.4-10.4); Platelet Count 265 K/uL (130-400); RDW Coefficient of Variation 15.2 % (11.5-14.5); RDW Standard Deviation 47.4 fL (36.4-46.3); Red Blood Count 4.31 M/uL (4.2-5.4)
[2021-10-27 07:35] LABS: Albumin Level 2.4 gm/dl (3.4-5.0); BUN Creatinine Ratio 23.5 (10-20); C Reactive Protein 2.39 mg/dl (0-0.29); Calcium 8.4 mg/dl (8.5-10.1); Creatinine Clr Calc Pharmacy 211.1 ml/min; Est GFR (African American) 142.8 ml/min; Est GFR (Non-African American) 123.2 ml/min; Magnesium 2.3 mg/dl (1.8-2.4); Phosphorus 3.1 mg/dl (2.5-4.9); Potassium 3.7 mmol/L (3.5-5.1)
[2021-10-27 07:37] LABS: Albumin Globulin Ratio 0.6 (0.9-2); Bilirubin,Total 0.5 mg/dl (0.2-1); Globulin 4.1 gm/dl (2.5-4.0); Total Protein 6.5 gm/dl (6.4-8.2)
[2021-10-27] MEDS: dexAMETHasone 6 MG in SYRINGE 0 ML IV SCH (08:08)
[2021-10-27] MEDS: ENOXAPARIN INJ 40 MG/0.4 ML SYR SQ SCH ×2 (08:09→21:16)
--- NOTE | 2021-10-27 08:55 | Hospitalist Progress Note ---
Date of Service October 27, 2021 Assessment & Plan (1) Pneumonia due to COVID-19 virus: Plan: Slightly late presentation for remdesivir, offered but she declines. Cont with decadron. Encouraged to prone. Feeling better (2) Hypoxia: Plan: Support with oxygen, currently requiring 4 LPM at rest. Was on 10 L (3) Morbid obesity: Plan: Placed her at higher risk for complications of covid-19. Bacteremia - likely contaminant 10/23 - 1 of 4 blood cultx positive for coag negat. stah not lugdunensis - repeat blood cultx negat. for 48 hrs - was started on empiric dapto, will stop now -likely contaminant (4) DVT prophylaxis: Plan: Lovenox BID started as this is a highly thrombogenic condition and she is predominantly bedbound at this time. Full code Dispo-to home when medically stable Admission and Anticipated Discharge Date Admission Date: October 23, 2021 Subjective 31 yo unvaccinated obese female presents with hypoxia secondary to 9 days of covid symptoms. Currently sitting up in bed in [facility], using 4L of O2 via NC per RN pt is ambulatory Pt inquiring about DC as she wants to be home for the holidays Overall reports feeling well, no chest pain, no abd. pain, n/v. She has minimal cough. Review of Systems Review of Systems: All systems reviewed & are unremarkable except as noted in Subjective Physical Exam Physical Exam: Gen- AAO x 3, NAD, obese F in NAD, on 4L of O2 Head- NCAT, EOMI, PERRL Neck- Supple Lungs- decreased breath sounds, no rhonchi, No Wheezing Chest- +S1, +S2, No Murmurs Abdomen-Soft, Bowel Sounds Present, obese, non-tender, Non Distended, No Guarding Musculoskeletal-Full Range of Motion Bilaterally, No CVAT Extremities-No Cyanosis, No Clubbing, No Edema Neuro- awake and alert, answering questions appropriately, speech fluent, moves extremities Psych-Normal Mood Results & Data Results & Data ([facility]) Vital Signs (Past 12 Hours) Vital Signs Temp Pulse Resp BP Pulse Ox 10/27/21 07:54 36.6 C 69 19 128/86 92 10/27/21 04:00 36.6 C 60 20 106/76 94 10/26/21 23:43 36.7 C 60 18 121/82 95 Laboratory Results 10/27/21 10/27/21 10/27/21 Range/Units 06:25 06:25 06:25 WBC 5.80 (4.8-10.8) K/uL RBC 4.31 (4.2-5.4) M/uL Hgb 11.8 L (12.0-16.0) g/dL Hct 36.6 L (37-47) % MCV 84.9 (80-100) fL MCH 27.4 (25-34) pg MCHC 32.2 (32-36) g/dL RDW Std Deviation 47.4 H (36.4-46.3) fL RDW Coeff of Hermes 15.2 H (11.5-14.5) % Plt Count 265 (130-400) K/uL MPV 9.6 (7.4-10.4) fL Sodium 139 (136-145) mmol/L Potassium 3.7 (3.5-5.1) mmol/L Chloride 108 H (98-107) mmol/L Carbon Dioxide 25 (21-32) mmol/L Anion Gap 6.0 (3-11) BUN 13 (7-18) mg/dl Creatinine 0.55 L (0.6-1.2) mg/dl Est Cr Clr Drug Dosing 211.1 ml/min Est GFR ( Amer) 142.8 ml/min Est GFR (Non-Af Amer) 123.2 ml/min BUN/Creatinine Ratio 23.5 H (10-20) Glucose 115 H (70-99) mg/dl Calcium 8.4 L (8.5-10.1) mg/dl Phosphorus 3.1 (2.5-4.9) mg/dl Magnesium 2.3 (1.8-2.4) mg/dl Total Bilirubin 0.5 (0.2-1) mg/dl AST 17 (15-37) U/L ALT 36 (12-78) Alkaline Phosphatase 55 (45-117) U/L C-Reactive Protein 2.39 H (0-0.29) mg/dl Total Protein 6.5 (6.4-8.2) gm/dl Albumin 2.4 L (3.4-5.0) gm/dl Globulin 4.1 H (2.5-4.0) gm/dl Albumin/Globulin Ratio 0.6 L (0.9-2) Procalcitonin < 0.05 (0-0.5) ng/ml Medications Administered Current Inpatient Medications Acetaminophen (Acetaminophen 325 Mg Tab) 650 mg PO Q4H PRN PRN Reason: Pain or Fever Stop: 11/23/21 01:50 Benzonatate (Benzonatate 100 Mg Capsule) 100 mg PO TID PRN PRN Reason: Cough Stop: 11/23/21 01:50 Last Admin: 10/24/21 14:20 Dose: 100 mg Documented by: Calcium Carbonate (Calcium Carbonate 500 Mg Chewable Tab) 500 mg PO TID PRN PRN Reason: Indigestion Stop: 11/24/21 08:43 Enoxaparin Sodium (Enoxaparin Inj 40 Mg/0.4 Ml Syr) 40 mg SQ BID CHAVA Stop: 11/23/21 12:29 Last Admin: 10/27/21 08:09 Dose: 40 mg Documented by: Hydroxyzine HCl (Hydroxyzine Hcl 25 Mg Tab) 50 mg PO TID PRN PRN Reason: Anxiety Stop: 11/23/21 01:50 Last Admin: 10/26/21 21:47 Dose: 50 mg Documented by: Dexamethasone 6 mg/ Syringe 1.5 mls @ 1 mls/min IV DAILY CHAVA Stop: 11/23/21 08:59 Last Admin: 10/27/21 08:08 Dose: 1 mls/min Documented by: Daptomycin 550 mg/ Syringe 11 mls @ 5.5 mls/min IV DAILY@1800 CHAVA; Protocol Stop: 11/07/21 18:29 Last Admin: 10/26/21 16:45 Dose: 5.5 mls/min Documented by: Miscellaneous Information (Daptomycin Consult Active) 1 ea N/A UD PRN PRN Reason: Consult Stop: 11/23/21 17:37
[2021-10-27] MEDS: PANTOprazole 40 MG TAB PO SCH (11:44)
[2021-10-27] MEDS: DAPTOmycin 550 MG in SYRINGE 0 ML IV SCH (17:34)
[2021-10-27] MEDS: hydrOXYzine HCl 25 MG TAB PO PRN (21:17)
[2021-10-27] MEDS ORDERED: FUROSEMIDE INJ 20 MG/2 ML VIAL IV ONE (21:21)
[2021-10-27] MEDS ORDERED: POTASSIUM CHLORIDE CRTAB 20 MEQ TABCR PO STA (21:21)
[2021-10-28 06:58] LABS: Hematocrit (blood only) 38.6 % (37-47); Hemoglobin 12.4 g/dL (12.0-16.0); Mean Corpuscular Hemoglobin 27.7 pg (25-34); Mean Corpuscular Hgb Conc 32.1 g/dL (32-36); Mean Corpuscular Volume 86.4 fL (80-100); Mean Platelet Volume 9.6 fL (7.4-10.4); Platelet Count 310 K/uL (130-400); Red Blood Count 4.47 M/uL (4.2-5.4); White Blood Count 6.23 K/uL (4.8-10.8)
[2021-10-28 07:23] LABS: BUN Creatinine Ratio 27.3 (10-20); Calcium 8.8 mg/dl (8.5-10.1); Creatinine Clr Calc Pharmacy 213.7 ml/min; Est GFR (African American) 143.7 ml/min; Magnesium 2.4 mg/dl (1.8-2.4)
[2021-10-28 07:24] LABS: Phosphorus 3.2 mg/dl (2.5-4.9)
[2021-10-28] MEDS: dexAMETHasone 6 MG in SYRINGE 0 ML IV SCH (08:30)
[2021-10-28] MEDS: PANTOprazole 40 MG TAB PO SCH (08:30)
[2021-10-28] MEDS: ENOXAPARIN INJ 40 MG/0.4 ML SYR SQ SCH (08:30)
--- NOTE | 2021-10-28 17:56 | Hospitalist Progress Note ---
Date of Service October 28, 2021 Assessment & Plan (1) Pneumonia due to COVID-19 virus: Plan: Slightly late presentation for remdesivir, offered but she declines. Cont with decadron. Encouraged to prone. Feeling much better (2) Hypoxia: Plan: Support with oxygen, currently requiring 2 LPM at rest. Was on 10 L (3) Morbid obesity: Plan: Placed her at higher risk for complications of covid-19. Bacteremia - likely contaminant 10/23 - 1 of 4 blood cultx positive for coag negat. stah not lugdunensis - repeat blood cultx negat. for 48 hrs - was started on empiric dapto, stopped now -likely contaminant (4) DVT prophylaxis: Plan: Lovenox BID started as this is a highly thrombogenic condition and she is predominantly bedbound at this time. Full code Dispo-to home w/ suppl. O2 Patient is eager to be discharged home for holidays. 2 step study ordered, patient qualifies for 2 L at rest and 4 L of oxygen with ambulation. Patient plans to isolate herself, her will be helping her, patient's is at least 10 days after overcoming Covid virus infection. Admission and Anticipated Discharge Date Admission Date: October 23, 2021 Subjective 31 yo unvaccinated obese female presents with hypoxia secondary to 9 days of covid symptoms. Currently sitting up in bed in [facility], using 2L of O2 via NC per RN pt is ambulatory Pt inquiring about DC as she wants to be home for the holidays Overall reports feeling well, no chest pain, no abd. pain, n/v. She has minimal cough. 2 study ordered, patient qualifies for 2 L at rest and 4 L with ambulation Review of Systems Review of Systems: All systems reviewed & are unremarkable except as noted in Subjective Physical Exam Physical Exam: Gen- AAO x 3, NAD, obese F in NAD, on 2L of O2 Head- NCAT, EOMI, PERRL Neck- Supple Lungs- decreased breath sounds, no rhonchi, No Wheezing Chest- +S1, +S2, No Murmurs Abdomen-Soft, Bowel Sounds Present, obese, non-tender, Non Distended, No Guarding Musculoskeletal-Full Range of Motion Bilaterally, No CVAT Extremities-No Cyanosis, No Clubbing, No Edema Neuro- awake and alert, answering questions appropriately, speech fluent, moves extremities Psych-Normal Mood Results & Data Results & Data ([facility]) Vital Signs (Past 12 Hours) Vital Signs Temp Pulse Pulse Pulse Pulse Pulse Pulse 10/28/21 16:11 37.1 C 10/28/21 16:04 37.1 C 10/28/21 15:00 69 10/28/21 13:58 70 71 90 91 H 87 10/28/21 12:00 10/28/21 10:58 36.6 C 10/28/21 08:00 36.9 C 10/28/21 07:27 54 L Pulse Pulse Pulse Pulse Resp Resp Resp 10/28/21 16:11 66 78 67 20 10/28/21 16:04 67 20 10/28/21 15:00 10/28/21 13:58 67 19 19 10/28/21 12:00 10/28/21 10:58 66 63 18 10/28/21 08:00 67 16 10/28/21 07:27 Resp Resp Resp Resp BP BP Pulse Ox 10/28/21 16:11 128/86 131/61 93 10/28/21 16:04 131/61 93 10/28/21 15:00 10/28/21 13:58 19 20 19 19 10/28/21 12:00 95 10/28/21 10:58 119/76 96 10/28/21 08:00 142/77 H 95 10/28/21 07:27 Pulse Ox Pulse Ox Pulse Ox Pulse Ox Pulse Ox Pulse Ox 10/28/21 16:11 10/28/21 16:04 10/28/21 15:00 10/28/21 13:58 88 L 90 87 L 92 84 L 87 L 10/28/21 12:00 10/28/21 10:58 10/28/21 08:00 10/28/21 07:27 Laboratory Results 10/28/21 10/28/21 Range/Units 06:24 06:24 WBC 6.23 (4.8-10.8) K/uL RBC 4.47 (4.2-5.4) M/uL Hgb 12.4 (12.0-16.0) g/dL Hct 38.6 (37-47) % MCV 86.4 (80-100) fL MCH 27.7 (25-34) pg MCHC 32.1 (32-36) g/dL RDW Std Deviation 48.0 H (36.4-46.3) fL RDW Coeff of Hermes 15.0 H (11.5-14.5) % Plt Count 310 (130-400) K/uL MPV 9.6 (7.4-10.4) fL Sodium 141 (136-145) mmol/L Potassium 4.0 (3.5-5.1) mmol/L Chloride 108 H (98-107) mmol/L Carbon Dioxide 25 (21-32) mmol/L Anion Gap 8.0 (3-11) BUN 15 (7-18) mg/dl Creatinine 0.54 L (0.6-1.2) mg/dl Est Cr Clr Drug Dosing 213.7 ml/min Est GFR ( Amer) 143.7 ml/min Est GFR (Non-Af Amer) 124.0 ml/min BUN/Creatinine Ratio 27.3 H (10-20) Glucose 97 (70-99) mg/dl Calcium 8.8 (8.5-10.1) mg/dl Phosphorus 3.2 (2.5-4.9) mg/dl Magnesium 2.4 (1.8-2.4) mg/dl
--- NOTE | 2021-10-28 18:02 | Discharge Summary ---
Date of Service October 28, 2021 Admission HPI Per Admitting Provider Medical history significant for kidney stones, anxiety disorder, prediabetes. 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 10 days ago patient noted fever, vomiting, diarrhea symptoms without abdominal pain. Sick COVID-19 contacts at work. Home Covid test was positive. Patient has not received COVID-19 vaccination. Supportive care recommended by PCPs office. 3 days ago, patient noted burning chest discomfort with cough productive of yellow sputum followed by hemoptysis, shortness of breath, body aches, headache and neck pain. PCPs office recommended ER consult if O2 sats below 80 at home as per patient. O2 sats noted to be 70s on home pulse ox. Decadron administered at the ER. Admission Exam Per Admitting Provider GENERAL: Slightly anxious and uncomfortable, morbidly obese, minimal respiratory distress SKIN: Normal color, warm HEENT: [place] palpebral conjunctivae, no ptosis, dry buccal mucosa, nasal cannula in place NECK : Supple, short neck, no tenderness CHEST : Decreased breath sounds, no tenderness HEART : RRR, no obvious murmurs ABDOMEN: Some distention, nontender EXTREMITIES : Minimal LE swelling, no LE tenderness, no other conspicuous deformities noted NEUROLOGIC : Coherent, no facial asymmetry, no other gross focality Principal Diagnosis Acute respiratory failure with hypoxia secondary to covid 19 pna Discharge Exam Gen- AAO x 3, NAD, obese F in NAD, on 2L of O2 Head- NCAT, EOMI, PERRL Neck- Supple Lungs- decreased breath sounds, no rhonchi, No Wheezing Chest- +S1, +S2, No Murmurs Abdomen-Soft, Bowel Sounds Present, obese, non-tender, Non Distended, No Guardi ng Musculoskeletal-Full Range of Motion Bilaterally, No CVAT Extremities-No Cyanosis, No Clubbing, No Edema Neuro- awake and alert, answering questions appropriately, speech fluent, moves extremities Psych-Normal Mood Discharge Data Allergies Allergy/AdvReac Type Severity Reaction Status Date / Time prednisone AdvReac Mild heart Verified 10/24/21 06:11 racing as per px Consultations 10/23/21 20:23 ED Decision to Admit Stat Ordered Studies 10/23/21 19:52 CT angio chest PE protocol Stat IMPRESSION: 1. Motion compromised examination. 2. There is no evidence of central pulmonary embolus in the main, lobar, or proximal segmental pulmonary arteries. Evaluation of the segmental and subsegmental branches is significantly degraded by motion artifact. 3. Extensive multifocal airspace consolidation is consistent with the reported history of a viral pneumonia. Radiographic follow-up to resolution is recommended. 4. Enlarged mediastinal and hilar lymph nodes are likely reactive. 5. Mild splenomegaly. 6. Additional findings in full report. Hospital Course (1) Pneumonia due to COVID-19 virus: Slightly late presentation for remdesivir, offered but she declines. Cont with decadron. Encouraged to prone. Feeling much better (2) Hypoxia: Support with oxygen, currently requiring 2 LPM at rest. Was on 10 L (3) Morbid obesity: Placed her at higher risk for complications of covid-19. Bacteremia - likely contaminant 10/23 - 1 of 4 blood cultx positive for coag negat. stah not lugdunensis - repeat blood cultx negat. for 48 hrs - was started on empiric dapto, stopped now -likely contaminant (4) DVT prophylaxis: Lovenox BID started as this is a highly thrombogenic condition and she is predominantly bedbound at this time. Full code Dispo-to home w/ suppl. O2 Patient is eager to be discharged home for holidays. 2 step study ordered, patient qualifies for 2 L at rest and 4 L of oxygen with ambulation. Patient plans to isolate herself, her will be helping her, patient's is at least 10 days after overcoming Covid virus infection. Total Time Total Time Spent Total Time Spent (In Minutes): 40 Discharge Plan Discharge Items Patient Disposition: Home - Self-Care Reason For Visit: RESP FAILURE COVID Discharge Diagnosis: Acute respiratory failure with hypoxia secondary to covid 19 pna Activity: Per Instructions section Non-emergency contact: Primary Care Provider Call non-emergency contact if: you have any medication questions and your symptoms worsen Follow-up/Referrals: Barbara Aaron MD [Outside Practitioners] - (Date & Time 11/03/2021 10:20 AM Provider Stephen Warren MD [facility] PLEASE NOTE THAT THIS IS A TELEHEALTH VIDEO APPOINTMENT. PLEASE FOLLOW THE INSTRUCTIONS PROVIDED IN YOUR EMAIL. IF YOU HAVE ANY QUESTIONS REGARDING THIS APPOINTMENT, PLEASE CALL ) Diet: Heart Healthy Addtl Attending Provider Instructions: Follow up with your primary care doctor, the appointment was scheduled for you for November 03. Take Decadron 6 mg daily for next 5 days as prescribed. Take pantoprazole to protect your stomach mucosa from irritation from steroid. Use continuous oxygen 2 L at rest, and 4 L with ambulation. Make sure to isolate yourself until you see and discuss further with your primary care physician. Addtl Publicity Agent Provider Instructions: Home Isolation COVID-19 Instructions The following information about Home Isolation is from the CDC Website: https://www.cdc.gov/coronavirus/2019-ncov/hcp/gdtmhqeu-olcdzya-wdiude.html Stay home except to get medical care People who are mildly ill with COVID-19 are able to isolate at home during their illness. You should restrict activities outside your home, except for getting medical care. Do not go to work, school, or public areas. Avoid using public transportation, ride-sharing, or taxis. Separate yourself from other people and animals in your home People: As much as possible, you should stay in a specific room and away from other people in your home. Also, you should use a separate bathroom, if available. Animals: You should restrict contact with pets and other animals while you are sick with COVID-19, just like you would around other people. Although there have not been reports of pets or other animals becoming sick with COVID-19, it is still recommended that people sick with COVID-19 limit contact with animals until more information is known about the virus. When possible, have another member of your household care for your animals while you are sick. If you are sick with COVID-19, avoid contact with your pet, including petting, snuggling, being kissed or licked, and sharing food. If you must care for your pet or be around animals while you are sick, wash your hands before and after you interact with pets and wear a face mask. Call ahead before visiting your doctor If you have a medical appointment, call the healthcare provider and tell them that you have or may have COVID-19. This will help the healthcare providers office take steps to keep other people from getting infected or exposed. Wear a face mask You should wear a face mask when you are around other people (e.g., sharing a room or vehicle) or pets and before you enter a healthcare providers office. If you are not able to wear a face mask (for example, because it causes trouble breathing), then people who live with you should not stay in the same room with you, or they should wear a face mask if they enter your room. Cover your coughs and sneezes Cover your mouth and nose with a tissue when you cough or sneeze. Throw used tissues in a lined trash can. Immediately wash your hands with soap and water for at least 20 seconds or, if soap and water are not available, clean your hands with an alcohol-based hand executive [employer] that contains at least 60% alcohol. Clean your hands often Wash your hands often with soap and water for at least 20 seconds, especially after blowing your nose, coughing, or sneezing; going to the bathroom; and before eating or preparing food. If soap and water are not readily available, use an alcohol-based hand [employer] with at least 60% alcohol, covering all surfaces of your hands and rubbing them together until they feel dry. Soap and water are the best option if hands are visibly dirty. Avoid touching your eyes, nose, and mouth with unwashed hands. Avoid sharing personal household items You should not share dishes, drinking glasses, cups, eating utensils, towels, or bedding with other people or pets in your home. After using these items, they should be washed thoroughly with soap and water. Clean all high-touch surfaces everyday High touch surfaces include counters, tabletops, doorknobs, bathroom fixtures, toilets, phones, keyboards, tablets, and bedside tables. Also, clean any surfaces that may have blood, stool, or body fluids on them. Use a household cleaning spray or wipe, according to the label instructions. Labels contain instructions for safe and effective use of the cleaning product including precautions you should take when applying the product, such as wearing gloves and making sure you have good ventilation during use of the product. Monitor your symptoms Seek prompt medical attention if your illness is worsening (e.g., difficulty breathing).Beforeseeking care, call your healthcare provider and tell them that you have, or are being evaluated for, COVID-19. Put on a face mask before you enter the facility. These steps will help the healthcare providers office to keep other people in the office or waiting room from getting infected or exposed. Ask your healthcare provider to call the local or state health department. Persons who are placed under active monitoring or facilitated self- monitoring should follow instructions provided by their local health department or occupational health professionals, as appropriate. When working with your local health department check their available hours. If you have a medical emergency and need to call 911, notify the dispatch personnel that you have, or are being evaluated for COVID-19. If possible, put on a face mask before emergency medical services arrive. Discontinuing home isolation Patients with confirmed COVID-19 should remain under home isolation precautions until the risk of secondary transmission to others is thought to be low. The decision to discontinue home isolation precautions should be made on a hkwa-bt-ueel basis, in consultation with healthcare providers and state and [facility] health departments. Coronavirus disease 2019 (COVID-19) is a virus that causes a respiratory illness. It is caused by a coronavirus called 2019 novel coronavirus (2019- nCoV). There are many types of coronavirus. Coronaviruses are a very common cause of bronchitis. They may sometimes cause lung infection(pneumonia). Symptoms can range from mild to severe respiratory illness. These viruses are also foundin some animals. COVID-19 was first found in people in [facility], in late 2019. In 2020, several cases of COVID-19 have been confirmed in the [place] Public health officials are working to find the source. How the virus spreads is not yet fully known. It may be spread through droplets of fluid that a person coughs or sneezes into the air. It may be spread if you touch a surface with virus on it, such as a handle or object, and then touch your mouth. What are the symptoms of COVID-19? Some people have no symptoms or mild symptoms. Symptoms may appear 2 to 14 days after contact with the virus. Symptoms can include: Fever Coughing Trouble breathing What are possible complications from COVID-19? In many cases, this virus can cause infection (pneumonia) in both lungs. In some cases, this can cause . How is COVID-19 diagnosed? Your healthcare provider will ask about your symptoms. He or she will also ask about your recent travel and contact with sick people. Testing for the virus is only done through the [facility]. If yourhealthcare provider thinks you may have COVID- 19, he or she will work with your local health department and the CDC on testing. Follow all instructions from your healthcare provider. COVID-19 is diagnosed by: Nasal and throat swab. A cotton-tipped swab is wiped inside your nose or throat. This is done to check for viruses in your nasal mucus. Sputum culture. A small sample of mucus coughed from your lungs (sputum) is collected if you have a cough. It is checked for the virus. How is COVID-19 treated? There is currently no medicine to treat the virus. Treatment is done to help your body while it fights the virus. This is known as supportive care. Supportive care may include: Pain medicine. These include acetaminophen and ibuprofen. They are used to help ease pain and reduce fever. Bed rest. This helps your body fight the illness. For severe illness, you may need to stay in the hospital. Care during severe illness may include: IV (intravenous) fluids.These are given through a vein to help keep your body hydrated. Oxygen. Supplemental oxygen or ventilation with a breathing machine (ventilator) may be given. This is done to keep enough oxygen in your body. Are you at risk for COVID-19? If youve been to a place where people have been sick with this virus, you are at risk for infection. You are at risk if you: Recently traveled to an affected area Had contact with a sick person who recently traveled to this area Had contact with a person who was diagnosed with COVID-19 How can COVID-19 be prevented? There is no vaccine yet. The best prevention is to not have contact with the virus. The CDC advises that people should not travel to areas where there are COVID-19 outbreaks right now for any reason that is not urgent. To help prevent spreading the infection, wash your hands often, or use an alcohol-basedhand [employer]. If you are in an area with COVID-19: Wash your hands often. Or use an alcohol-based hand [employer] often. Only touch your eyes, nose, or mouth with clean hands. Dont have contact with people who are sick. Follow local instructions about being in public. For example, you may be told to not use public transport for a period of time. Stay away from markets that have live or animals. Wash your hands after touching any animals. Don't touch animals that may be sick. Dont share eating or drinking tools with sick people. Dont kiss someone who is sick. Clean surfaces often with disinfectant. If you were in an area with COVID-19 in the last 14 days: Call your healthcare provider. He or she can talk with local health staff to see what action may be needed. Follow all instructions from your provider. Take your temperature every morning and evening for at least 14 days. This is to check for fever. Keep a record of the readings. Keep watch for symptoms of the virus. Tell your provider right away if you have symptoms. If you were in an area with COVID-19 and have a fever or other symptoms: Dont panic. Keep in mind that other illnesses can cause similar symptoms. Stay away from work, school, and public places. Limit physical contact with family members. Don't kiss anyone or share eating or drinking utensils. Clean surfaces you touch with disinfectant. This is to help prevent the virus from spreading. Call your healthcare provider. Explain that you have been exposed to COVID-19 and have symptoms. Do this before going to any hospital. Wait for instructions. Keep in mind that healthcare staff may wear protective equipment such as masks , gowns, gloves, and eye protection. You may be put in a separate room. This is to prevent the possible virus from spreading. Tell the healthcare staff about recent travel. This includes local travel on public transport. Staff may need to find other people you have been in contact with. Follow all instructions the healthcare staff give you. If you have been diagnosed with COVID-19 Follow all instructions from your healthcare provider. Dont leave your home, except to get medical care. Call your healthcare providers office before going. They can prepare and give you instructions. This will help prevent the virus from spreading. Dont go to work, school, or public areas. Dont use public transport or taxis. Stay away from other people in your home. Have them wear face masks around you. Dont share household items or food. Wear a face mask if you can. This includes at home or in a medical facility. Cover your face with a tissue when you cough or sneeze. Throw the tissue away. Wash your hands. Wash your hands often. Caregivers should: Follow all instructions from healthcare staff. Wear a face mask and protective clothing as advised. Wash hands often. Keep track of the sick persons symptoms. Clean surfaces, fabrics, and laundry thoroughly. Keep other people away from the sick person. When to call your healthcare provider Call your healthcare provider: If youve recently traveled and have symptoms If you have been diagnosed with COVID-19 and your symptoms are worse To learn more To find out more about COVID-19, visit the CDC website at www.cdc.gov/coronavirus/2019-ncov/index.html. 2686-5963 [employer]. [address] [place] [address], [place] [address]. All rights reserved. This information is not intended as a substitute for professional medical care. Always follow your healthcare professional's instructions. This information has been adapted from [employer] Pending Studies at Discharge: No Stand-Alone Forms: My [place] [facility], Smoking Cessation Medications and DC Order Prescriptions: New pantoprazole 40 mg Tablet,Delayed Release (Dr/Ec) 40 mg PO QAM Qty: 14 RF: 0 dexamethasone [Decadron] 6 mg tablet 6 mg PO DAILY Qty: 5 RF: 0 enoxaparin 40 mg/0.4 mL Syringe 40 mg subcut BID 5 Days Qty: 4 RF: 0 Continued ondansetron HCl 8 mg tablet 8 mg PO Q8H PRN (Reason: Nausea And Vomiting) RF: 0 hydroxyzine HCl 50 mg tablet 50 mg PO TID RF: 0 Discharge Orders: Discharge Order (Routine); Ordered 10/28/21 Ordered By: Geo Shepherd/Other Patient Handouts: Prediabetes, 2019-nCoV, 5 Steps for Eating Healthier Admission Data Admit Date/Time: 10/23/21 21:55 Attending Provider: Geo Fall Admit Provider: Raphael Dodson Primary Care Provider: PCP,NO Other Providers: Raphael Dodson ; Feliciano Terrell Other Interventions: Discharge Summary Assessment (RN) Last Done: 10/28/21 16:11
== END 2021-10-28 17:38 | disposition home or self-care (01) | DRG 177 ==
LOC: ED 18:39 → SUATTDRO 21:55 → EDINP 21:55 → 2W 10-24 01:57 → 2S 10-24 22:01